=== PATIENT | male | born 1945 | race African-American/Black ===

== ENCOUNTER 2016-09-07 07:21 | Emergency (ER) | payer OTHER ==
[2016-09-07] MEDS ORDERED: HEPARIN IV ONE (07:30)
[2016-09-07] MEDS ORDERED: ASPIRIN PR ONE (07:30)
--- NOTE | 2016-09-07 07:46 | PROVIDER DOCUMENTATION ---
HPI-General Adult - General Stated Complaint: Full Arrest Time Seen by Provider: 09/07/16 07:21 Source: family, EMS Allergies/Adverse Reactions: Patient Allergies Allergy/AdvReac Type Severity Reaction Status Date / Time Unable to Assess Allergy Verified 09/07/16 07:25 Home Medications: Chlorhexidine Gluconate [Peridex] 15 ml MT BID 09/07/16 Donepezil [Aricept] 10 mg PO DAILY 09/07/16 Escitalopram [Lexapro] 10 mg PO QHS 09/07/16 Memantine HCl [Namenda] 10 mg PO BID 09/07/16 Metformin [Glucophage] 500 mg PO BID 09/07/16 Propylene Glycol/Peg 400 [Systane Gel Eye Drops] 10 ml OP DAILY 09/07/16 Zolpidem Tartrate [Ambien] 10 mg PO QHS 09/07/16 - History of Present Illness -Gen Adult Nature of Presenting Problems: SOB when he went to bathroom this morning. Was able to talk to fire fighters, but clasped on EMS arrival. Intubated on the scene and 2 rounds of epi given. Pt was unresponsive and pulseless on arrival. Lucus machine in place. Per EMS, pt does not communicate with any body at home and he is vet with PTSD. Only medical issue is DMII. Location of Pain/Injury: reports: none Pain Radiation: reports: no radiation Quality of Pain: reports: none Severity: reports: severe Onset/Duration: reports: just prior to arrival Timing: reports: still present Context/Activities at Onset: reports: light activity Modifying Factors: improves with: nothing Similar Symptoms Previously?: No Recently seen or treated by another doctor?: No Review of Systems - Adult - REVIEW OF SYSTEMS - ADULT ROS:: unobtainable per condition Constitutional: reports: see HPI Eyes: reports: no symptoms reported Ears, Nose, Mouth & Throat: reports: no symptoms reported Cardiovascular: reports: see HPI. denies: PND Respiratory: reports: see HPI Gastrointestinal: reports: no symptoms reported All Other Systems: Reviewed and Negative Physical Exam-General - PHYSICAL EXAM-ADULT Initial Vital Signs Reviewed: Yes - CONSTITUTIONAL General Appearance: other (Intubated and unresponsive) - EYES Eyes: PERRL/EOMI, other (Pupils fixed, but not dilated. No cornea reflex.) - HEAD, EARS, NOSE, MOUTH & THROAT HENMT: normocephalic/atraumatic, moist mucous membranes, other (Intubated) - NECK Neck: non-tender, full range of motion, supple, normal inspection - RESPIRATORY Respiratory: normal breath sounds (on ambu-bagging.) - CARDIOVASCULAR Cardiovascular: normal peripheral pulses, regular rate, rhythm - GASTROINTESTINAL (ABDOMEN) Abdominal Exam: normal bowel sounds, non tender, soft, no organomegaly - MUSCULOSKELETAL Back Exam: normal inspection, no CVA tenderness, no vertebral tenderness Extremity: normal range of motion, non-tender, normal gait - SKIN Integumentary: normal color, normal turgor, warm/dry - NEUROLOGIC Neurologic: other (Unresponsive and intubated) Progress - PLAN OF CARE/RESULTS Progress/Plan/Lab Results: Vital Signs Pulse Resp BP Pulse Ox 09/07/16 07:47 104 H 24 100/81 95 09/07/16 07:44 103 H 21 108/96 79 L 09/07/16 07:30 129 H 28 H 163/108 87 L Unable to Assess Allergy (Verified 09/07/16 07:25) patient unresponsive and intubated Chlorhexidine Gluconate [Peridex] 15 ml MT BID 09/07/16 Donepezil [Aricept] 10 mg PO DAILY 09/07/16 Escitalopram [Lexapro] 10 mg PO QHS 09/07/16 Memantine HCl [Namenda] 10 mg PO BID 09/07/16 Metformin [Glucophage] 500 mg PO BID 09/07/16 Propylene Glycol/Peg 400 [Systane Gel Eye Drops] 10 ml OP DAILY 09/07/16 Zolpidem Tartrate [Ambien] 10 mg PO QHS 09/07/16 Orders Category Date Time Status Cardiac Monitoring DIRECTED Care 09/07/16 07:31 Active Saline Loc NOW Care 09/07/16 07:31 Active HEAD W/O CONTRAST [CT] Stat Exams 09/07/16 08:05 Ordered CBC WITH ELECTRONIC DIFF [HEME] Stat Lab 09/07/16 07:55 Ordered CK PROFILE [SP CHEM] Stat Lab 09/07/16 07:55 Ordered COMPREHENSIVE METABOLIC PANEL [CHEM] Stat Lab 09/07/16 07:55 Ordered D-DIMER [CHEM] Stat Lab 09/07/16 07:55 Ordered MAGNESIUM [CHEM] Stat Lab 09/07/16 07:55 Ordered PRO B-NATRIURETIC PEPTIDE Stat Lab 09/07/16 07:55 Ordered PROTIME WITH INR [COAG] Stat Lab 09/07/16 07:55 Ordered PTT [COAG] Stat Lab 09/07/16 07:55 Ordered TROPONIN T Stat Lab 09/07/16 07:55 Ordered Aspirin Med 09/07/16 07:30 Discontinued 300 mg NH NOW ONE Dextrose 5%-0.45% NaCl Inj [D5 1/2 Ns] 250 ml Med 09/07/16 08:00 Active Norepinephrine [Levophed] 8 mg IV As Directed Heparin Med 09/07/16 07:30 Discontinued 5,000 unit IV NOW ONE EKG [EKG] Stat Ther 09/07/16 07:31 Ordered - REASSESSMENT Reassessment #1 Time Reassessed: 08:01 Status: improving (Resuscutation continues after ER arrival. Lost pulse X 3 times, but got it back. Details see the code sheet. Called Transfer center after initial EKG was done because the EKG showed suspecious II, III, and AVF elevation. Details see endorsement clerk's notes regarding the times for response from the [facility].) - EKG 1 Time of EKG reading by physician:: 07:30 EKG Interpretation (*Must complete 3 of following elements*): Abnormal Rate: 57 QRS: RBB Comments: Concerns for II, III, AVF, ST elevation 2 Time of EKG reading by physician:: 07:57 EKG Interpretation (*Must complete 3 of following elements*): Abnormal Rate: 74 Rhythm: A-fib [place]: normal QRS: RBB Comments: Changed from the intial EKG - XRAY 1 XRAY Study: Chest XRAY Interpretation: ET tube in place - CONSULTS/PCP/HOSPITALIST Notification Time Discussed: 08:06 Reason/Comments: Dr. Pelayo at [facility] accepted pt for transfer to CCU Consult Disposition: other (Dr. Pelayo requested head CT. Dr. Pelayo reviewed the EKGs, and decided to admit pt to CCU, not labor utilization superintendent.) Departure - Departure Time of Disposition Order: 08:08 DIAGNOSIS: Cardiopulmonary arrest with successful resuscitation Disposition: [facility] 02 Certified Medical Emergency: Emergent Condition: Critical - Critical Care Note Total Time (mins): 60 Critical Care Statement: This patient required my direct personal management to treat or rule out processes, the absence of which, could potentiallly result in sudden, clinically significant life or limb threatening deterioration.
[2016-09-07] MEDS ORDERED: CORDARONE 150 MG/D5W ONE (08:00)
[2016-09-07] MEDS ORDERED: EPINEPHRINE SYRINGE ONE (08:00)
[2016-09-07] MEDS ORDERED: SODIUM BICARBONATE 8.4% ONE (08:00)
[2016-09-07] MEDS ORDERED: CORDARONE ONE (08:00)
[2016-09-07] MEDS ORDERED: LEVOPHED 8 MG in D5 1/2 NS 250 ML IV SCH (08:00)
[2016-09-07] MEDS ORDERED: VANCOMYCIN 1 GM/NS 250 ML IV ONE (08:20)
[2016-09-07] MEDS ORDERED: ZOSYN 3.375 GM/NS 50 ML IV ONE (08:20)
[2016-09-07 08:23] LABS: MANUAL DIFF NEEDED? NO
[2016-09-07 08:35] LABS: BASO% 0.5 % (0.0-0.8); EOS# 0.07 X1000 (0.0-0.7); EOS% 0.9 % (0.0-10.0); HEMATOCRIT 51.3 % (42.0-52.0); HEMOGLOBIN 16.5 g/dL (14.0-18.0); IMM GRAN# 0.07 X1000 (0.0-0.04); IMM GRAN% 0.9 % (0.0-0.5); LYMPH# 4.66 X1000 (1.2-3.4); LYMPH% 57.2 % (20.5-51.1); MCH 27.9 PG (27-31); MCHC 32.2 g/dL (33-37); MCV 86.7 FL (81-99); MONO# 0.55 X1000 (0.11-0.59); MONO% 6.7 % (1.7-9.3); MPV 11.8 FL (7.4-10.4); NEUT% 33.8 % (42.2-75.2); PLT 114 X1000 (130-400); RBC 5.92 XMIL (4.7-6.1)
[2016-09-07 08:44] LABS: INR 1.2; PROTIME 12.7 Seconds (9.2-11.7); PTT 35.9 Seconds (22.0-36.0)
[2016-09-07] MEDS ORDERED: DIPRIVAN 1% 100 ML IV SCH (08:45)
--- NOTE | 2016-09-07 08:59 | Diag Imaging Result Document ---
PROCEDURE NAME: HEAD W/O CONTRAST - 09/07/2016 CT HEAD WITHOUT CONTRAST: COMPARISON: None available. FINDINGS: There is diffuse brain atrophy. There is no evidence of acute infarct given the limited sensitivity of CT versus MRI. There is, perhaps, minimal chronic- appearing low attenuation in the periventricular white matter suggesting minimal microangiopathy. 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 There is no discrete intracranial mass, mass effect, or intracranial hemorrhage. There is a small chronic defect at the medial orbital wall on the left with mile orbital fat dehiscence. Surrounding soft tissues and bony structures are essentially unremarkable, otherwise. IMPRESSION: Mild chronic-appearing changes as described but no definite acute intracranial pathology. [facility]
[2016-09-07] MEDS ORDERED: NORCURON IV ONE (09:08)
[2016-09-07] MEDS ORDERED: CORDARONE 150 MG/D5W 100 ML ONE (09:17)
[2016-09-07] MEDS ORDERED: CORDARONE 360 MG/D5W 200 ML IV ONE (09:17)
[2016-09-07] MEDS ORDERED: CORDARONE 360 MG/D5W 200 ML ONE (09:19)
[2016-09-07 09:41] VITALS: BP 113/84
[2016-09-07] MEDS ORDERED: ASPIRIN ONE (10:00)
[2016-09-07] MEDS ORDERED: HEPARIN ONE (10:00)
--- NOTE | 2016-09-07 11:52 | Diag Imaging Result Document ---
PROCEDURE NAME: CHEST-PORTABLE - 09/07/2016 SINGLE FRONTAL RADIOGRAPH OF THE CHEST: COMPARISON: None available. FINDINGS: There is a recently placed ET tube. The tip projects over the trachea and above the pat at about the T4 level. There is dense opacity at the right lung apex suggesting pneumonia. There is slight prominence of the upper mediastinum on the right. A central mass causing postobstructive pneumonia cannot completely be excluded. Consider evaluation with chest CT, preferably with IV contrast if not contraindicated. No large effusion is identified. Cardiac silhouette is unremarkable. IMPRESSION: 1. Recent placement of ET tube as described. 2. Dense consolidation at the right lung apex. Please see above discussion.
--- NOTE | 2016-09-09 06:18 | EKG Report ---
Test Performed on : 09/07/2016 07:57:53 AM Test Reason : Chest Pain Blood Pressure : / mmHG Vent. Rate : 074 BPM Atrial Rate : 019 BPM P-R Int : 000 ms QRS Dur : 144 ms QT Int : 440 ms P-R-T Axes : 000 069 029 degrees QTc Int : 488 ms Atrial fibrillation. with a competing junctional pacemaker. Right bundle branch block Abnormal ECG When compared with ECG of 07-SEP-2016 07:57, (Unconfirmed) No significant change was found Unconfirmed Result
== END 2016-09-07 09:35 | disposition short-term general hospital (02) ==
LOC: EDBD → ED 07:21
DX: I46.9 Cardiac arrest, cause unspecified (principal); J18.9 Pneumonia, unspecified organism; R94.31 Abnormal electrocardiogram [ECG] [EKG]; Z79.899 Other long term (current) drug therapy; F43.10 Post-traumatic stress disorder, unspecified; E11.9 Type 2 diabetes mellitus without complications; R47.01 Aphasia
CPT/HCPCS: 70450; 71010; 85025; 85379; 85610; 85730; 87040; 93005; J0171; J0282; J1644; J2543; J3370